=== PATIENT | female | born 1965 | race Two or more races ===

== ENCOUNTER 2017-06-09 16:12 | Day surgery (SDC) | payer OTHER, SELFPAY ==
[~2017-06-09] VITALS: Ht 149.9 cm; Wt 61.3 kg
[2017-06-09] MEDS ORDERED: ONDANSETRON ODT 4 MG PO ONE (17:00)
[2017-06-09 17:15] LABS: HEMATOCRIT 43.6 % (34.6-47.8); HEMOGLOBIN 14.6 g/dL (11.7-16.4); WHITE BLOOD COUNT 11.5 x10^3/uL (3.4-10)
[2017-06-09 17:27] LABS: BLOOD UREA NITROGEN 9 mg/dL (7-18)
[2017-06-09 17:35] LABS: ASPARTATE AMINO TRANSFERASE 14 U/L (15-37)
[2017-06-09] MEDS ORDERED: LEVO100T5 PO (18:19)
[2017-06-09] MEDS ORDERED: SODIUM CHLORIDE 0.9% 1,000 ML IV ONE ×2 (18:33→18:51)
[2017-06-09] MEDS ORDERED: ONDANSETRON 2MG/ML, 2ML ONE ×2 (18:38→19:49)
[2017-06-09] MEDS ORDERED: HYDROmorphone 1 MG/ML, 1ML ONE ×2 (18:39→19:45)
[2017-06-09] MEDS ORDERED: CEFOTETAN PMX 1GM/50ML 50 ML ONE (18:39)
[2017-06-09] MEDS ORDERED: HYDROmorphone 1 MG/ML, 1ML IVPush PRN ×2 (19:00)
[2017-06-09] MEDS ORDERED: SODIUM CHLORIDE FLUSH 10ML SYR IVF PRN (19:00)
[2017-06-09] MEDS ORDERED: SODIUM CHLORIDE FLUSH 10ML SYR IVF ONE (19:00)
[2017-06-09] MEDS ORDERED: CEFOTETAN PMX 1GM/50ML 50 ML IVPB ONE (19:00)
[2017-06-09] MEDS ORDERED: ONDANSETRON 2MG/ML, 2ML IVPush PRN ×3 (19:00→22:30)
[2017-06-09] MEDS ORDERED: ONDANSETRON 2MG/ML, 2ML IVPush ONE (19:00)
[2017-06-09] MEDS ORDERED: SODIUM CHLORIDE 0.9% 1,000ML IVBOLUS ONE (19:00)
[2017-06-09 19:01] LABS: PATH.CAST-FLAG NOT PRESENT; SPERM-FLAG NOT PRESENT; SRC-FLAG NOT PRESENT; XTAL-FLAG NOT PRESENT; YLC-FLAG NOT PRESENT
[2017-06-09 19:22] VITALS: BP 138/81
[2017-06-09] MEDS ORDERED: BUPIVACAINE/PF 0.5% ONE (19:25)
[2017-06-09] MEDS ORDERED: EPINEPHRINE 1 MG/ML, 1ML ONE (19:27)
[2017-06-09 19:45] LABS: HCG UR OBC PASS
[2017-06-09] MEDS ORDERED: FENTANYL PF 100 MCG/2ML ONE (19:45)
[2017-06-09] MEDS ORDERED: KETOROLAC 30 MG/1 ML ONE (19:49)
[2017-06-09] MEDS ORDERED: SUCCINYLCHOLINE 20 MG/ML, 10ML ONE (19:49)
[2017-06-09] MEDS ORDERED: PROPOFOL 10 MG/ML, 20ML ONE (19:49)
[2017-06-09] MEDS ORDERED: GLYCOPYRROLATE 0.2MG/1ML ONE (19:49)
[2017-06-09] MEDS ORDERED: NEOSTIGMINE 1 MG/ML, 10ML ONE (19:49)
[2017-06-09] MEDS ORDERED: METOCLOPRAMIDE 5 MG/ML, 2ML ONE (19:49)
[2017-06-09] MEDS ORDERED: DEXAMETHASONE 4 MG/ML, 1ML ONE (19:49)
[2017-06-09] MEDS ORDERED: ROCURONIUM 10 MG/ML ONE (19:49)
[2017-06-09] MEDS ORDERED: hydrALAzine 20 MG/ML, 1ML IV PRN (20:00)
[2017-06-09] MEDS ORDERED: MEPERIDINE/PF 25MG/0.5ML IVPush PRN (20:00)
[2017-06-09] MEDS ORDERED: OXYcodone 5 MG/5 ML ORAL.SOL UDC PO PRN (20:00)
[2017-06-09] MEDS ORDERED: LABETALOL 5MG/ML, 20ML IV PRN (20:00)
[2017-06-09] MEDS ORDERED: PROMETHAZINE 25 MG/ML, 1ML IV PRN (20:00)
[2017-06-09] MEDS ORDERED: HYDROmorphone 1 MG/ML, 1ML IV PRN (20:00)
[2017-06-09] MEDS ORDERED: ACETAMINOPHEN 325 MG TABLET PO PRN (20:00)
[2017-06-09] MEDS ORDERED: MIDAZOLAM 1 MG/ML, 2ML IV PRN (20:00)
[2017-06-09] MEDS ORDERED: FENTANYL PF 100 MCG/2ML IV PRN (20:00)
[2017-06-09] MEDS ORDERED: BUPIVACAINE/PF 0.5% INFIL ONE (20:08)
[2017-06-09] MEDS ORDERED: EPINEPHRINE 1 MG/ML, 1ML INFIL ONE (20:09)
[2017-06-09] MEDS ORDERED: ONDA4TAB7 PO (22:05)
[2017-06-09] MEDS ORDERED: OXYC-302 PO (22:07)
[2017-06-09] MEDS ORDERED: MORPHINE SULFATE 4 MG/ML, 1ML IVPush PRN (22:30)
[2017-06-09] MEDS ORDERED: HYDROcodone/APAP 7.5-325MG/15ML UDC PO PRN (22:30)
[2017-06-09] MEDS ORDERED: HYDROcodone/APAP 5/325 TABLET PO PRN (22:30)
[2017-06-09] MEDS ORDERED: OXYcodone/APAP 5/325MG TABLET PO PRN (22:30)
[2017-06-09] MEDS ORDERED: LACTATED RINGERS 1,000 ML IV SCH (22:30)
[2017-06-11] MEDS ORDERED: HYDROmorphone 1 MG/ML, 1ML ONE (07:29)
[2017-06-11] MEDS ORDERED: ONDANSETRON 2MG/ML, 2ML ONE (07:31)
== END 2017-06-10 01:07 | disposition home or self-care (01) ==
LOC: ED 18:58 → 4NOR 19:20 → SDC 19:20 → UNDOADMIN 19:20 → 4NOR 21:59 → UNDODISIN 06-10 01:07 → SDC 06-10 01:07
PROVIDERS: ATTEND Surgery
DX: K80.12 Calculus of gallbladder with acute and chronic cholecystitis without obstruction (principal); E03.9 Hypothyroidism, unspecified; E89.0 Postprocedural hypothyroidism; Z98.890 Other specified postprocedural states
CPT/HCPCS: 36415; 47562; 76700; 80053; 81001; 81025; 83690; 85025; 87086; 88304; 96374; 99285; C1760; J0171; J0330; J1100; J1170; J1885; J2405; J2704; J2710; J2765; J3010; J3490; J7030; S0074

== ENCOUNTER 2017-06-11 06:42 | Inpatient (IN) | payer OTHER ==
[~2017-06-11] VITALS: Ht 149.9 cm; Wt 68.3 kg
[~2017-06-11 06:42] MED LIST: LEVO100T5 PO; ONDA4TAB7 PO; OXYC-302 PO
[2017-06-11] MEDS ORDERED: OMNIPAQUE 350 MG/ML, 100ML BOTTLE ONE (08:25)
[2017-06-11] MEDS ORDERED: HYDROmorphone 1 MG/ML, 1ML ONE (09:30)
[2017-06-11 10:39] LABS: WHITE BLOOD COUNT 14.9 x10^3/uL (3.4-10)
[2017-06-11 10:40] LABS: HEMATOCRIT 38.7 % (34.6-47.8); HEMOGLOBIN 12.8 g/dL (11.7-16.4)
[2017-06-11 11:30] LABS: BLOOD UREA NITROGEN 10 mg/dL (7-18)
[2017-06-11 11:31] LABS: ASPARTATE AMINO TRANSFERASE 36 U/L (15-37); IS PT STATUS REG ER OR PRE ER? YES
[2017-06-11] MEDS: NS + 20MEQ KCL 1,000 ML IV SCH (12:23)
[2017-06-11] MEDS ORDERED: DOCUSATE 100 MG CAPSULE PO PRN (12:30)
[2017-06-11] MEDS ORDERED: POLYETHYLENE GLYCOL 17 GM PACKET PO PRN (12:30)
[2017-06-11] MEDS ORDERED: ONDANSETRON 2MG/ML, 2ML IVPush PRN (12:30)
[2017-06-11] MEDS ORDERED: BISACODYL 10 MG SUPP PR PRN (12:30)
[2017-06-11] MEDS ORDERED: LABETALOL 5MG/ML, 20ML IVPush PRN (12:30)
[2017-06-11] MEDS ORDERED: VANCOMYCIN PER PHARMACY MC PRN (12:30)
[2017-06-11] MEDS ORDERED: PLEASE ENTER HEIGHT AND WEIGHT MC SCH (12:37)
[2017-06-11] MEDS ORDERED: CEFTRIAXONE 1,000 MG ONE (12:46)
[2017-06-11 13:28] LABS: PATH.CAST-FLAG NOT PRESENT; SPERM-FLAG NOT PRESENT; SRC-FLAG NOT PRESENT; XTAL-FLAG NOT PRESENT; YLC-FLAG NOT PRESENT
[2017-06-11] MEDS ORDERED: FENTANYL PF 100 MCG/2ML ONE (13:28)
[2017-06-11] MEDS ORDERED: MIDAZOLAM 1 MG/ML, 5ML ONE (13:28)
[2017-06-11] MEDS: PLEASE ENTER HEIGHT AND WEIGHT MC SCH ×3 (14:00→16:00)
[2017-06-11 14:40] VITALS: BP 130/80
[2017-06-11] MEDS: PIPERACILLIN/TAZO/PMX 3.375GM 50 ML IV SCH ×2 (16:30→22:47)
[2017-06-11] MEDS ORDERED: PHARMACOKINETIC MONITORING MC PRN (16:30)
[2017-06-11] MEDS: ACETAMINOPHEN 325 MG TABLET PO PRN (17:40)
[2017-06-11] MEDS: VANCOMYCIN 1,300 MG in SODIUM CHLORIDE 0.9% 250 ML IV SCH (17:46)
[2017-06-11] MEDS: morphine SULFATE 10 MG/ML, 1ML IVPush PRN ×2 (17:46→20:47)
[2017-06-11 20:00] VITALS: BP 117/77
[2017-06-12] MEDS: ACETAMINOPHEN 325 MG TABLET PO PRN ×4 (00:04→19:45)
[2017-06-12] MEDS: morphine SULFATE 10 MG/ML, 1ML IVPush PRN ×2 (00:04→04:16)
[2017-06-12] MEDS: NS + 20MEQ KCL 1,000 ML IV SCH ×3 (02:58→15:16)
[2017-06-12 03:02] VITALS: BP 116/73
[2017-06-12] MEDS: LEVOTHYROXINE 100 MCG TABLET PO SCH (05:03)
[2017-06-12] MEDS: PIPERACILLIN/TAZO/PMX 3.375GM 50 ML IV SCH ×4 (05:03→22:29)
[2017-06-12 05:11] LABS: HEMATOCRIT 36.2 % (34.6-47.8); HEMOGLOBIN 11.9 g/dL (11.7-16.4)
[2017-06-12 05:22] LABS: ASPARTATE AMINO TRANSFERASE 28 U/L (15-37); BLOOD UREA NITROGEN 6 mg/dL (7-18)
[2017-06-12 06:40] VITALS: BP 119/77
[2017-06-12 15:21] VITALS: BP 136/85
[2017-06-12] MEDS: VANCOMYCIN 1,300 MG in SODIUM CHLORIDE 0.9% 250 ML IV SCH (17:03)
[2017-06-12 19:08] VITALS: BP 110/70
[2017-06-13 02:31] VITALS: BP 120/75
[2017-06-13] MEDS: HYDROcodone/APAP 5/325 TABLET PO PRN ×3 (03:00→18:38)
[2017-06-13 05:00] LABS: BLOOD UREA NITROGEN 8 mg/dL (7-18)
[2017-06-13] MEDS: LEVOTHYROXINE 100 MCG TABLET PO SCH (05:01)
[2017-06-13] MEDS: PIPERACILLIN/TAZO/PMX 3.375GM 50 ML IV SCH (05:02)
[2017-06-13] MEDS: NS + 20MEQ KCL 1,000 ML IV SCH (05:02)
[2017-06-13 05:26] LABS: HEMATOCRIT 33.1 % (34.6-47.8); HEMOGLOBIN 10.9 g/dL (11.7-16.4); WHITE BLOOD COUNT 6.9 x10^3/uL (3.4-10)
[2017-06-13 06:57] VITALS: BP 124/74
[2017-06-13] MEDS: CEFTRIAXONE PMX 1GM/50ML 50 ML IV SCH (09:28)
[2017-06-13 16:00] VITALS: BP 132/81
[2017-06-13 18:24] VITALS: BP 120/75
[2017-06-14] MEDS: HYDROcodone/APAP 5/325 TABLET PO PRN (00:28)
[2017-06-14 00:33] VITALS: BP 136/82
[2017-06-14] MEDS: LEVOTHYROXINE 100 MCG TABLET PO SCH (05:09)
[2017-06-14 05:12] LABS: BLOOD UREA NITROGEN 9 mg/dL (7-18)
[2017-06-14 05:16] LABS: HEMATOCRIT 35.3 % (34.6-47.8); HEMOGLOBIN 11.6 g/dL (11.7-16.4); WHITE BLOOD COUNT 8.4 x10^3/uL (3.4-10)
[2017-06-14 07:33] VITALS: BP 135/78
[2017-06-14] MEDS ORDERED: ONDA4TAB7 PO (08:34)
[2017-06-14] MEDS ORDERED: CEFD300C37 PO (08:34)
[2017-06-14] MEDS ORDERED: METR500T PO (08:34)
[2017-06-14] MEDS: CEFTRIAXONE PMX 1GM/50ML 50 ML IV SCH (08:39)
[2017-06-14] MEDS ORDERED: metroNIDAZOLE 500 MG TABLET PO SCH (09:00)
== END 2017-06-14 10:37 | disposition home or self-care (01) | DRG 871 ==
LOC: ED 09:09 → EDIP 12:23 → 3NE 13:40
PROVIDERS: ADMIT Internal Medicine; ATTEND Internal Medicine
PROC: 0W9G30Z Drainage of Peritoneal Cavity with Drainage Device, Percutaneous Approach (ICD-10-PCS; principal; 2017-06-11)
DX: A41.9 Sepsis, unspecified organism (principal); J18.0 Bronchopneumonia, unspecified organism; J96.01 Acute respiratory failure with hypoxia; K65.1 Peritoneal abscess; E44.0 Moderate protein-calorie malnutrition; K81.0 Acute cholecystitis; J98.11 Atelectasis; E03.9 Hypothyroidism, unspecified; Z68.30 Body mass index [BMI] 30.0-30.9, adult; Z90.49 Acquired absence of other specified parts of digestive tract; N76.0 Acute vaginitis
CPT/HCPCS: 10160; 36415; 49405; 71020; 71275; 74176; 80048; 80053; 81001; 83605; 83690; 84484; 85025; 85610; 85651; 85730; 87040; 87070; 87075; 87077; 87086; 87205; 93005; 99156; 99157; 99285; J0696; J2250; J2405; J2543; J3010; J3370; J3480; Q9967; C1729; C1769; J2270; J7050